=== PATIENT | male | born 1930 | race Caucasian/White ===

== ENCOUNTER 2019-02-27 00:41 | Emergency (ER) | payer OTHER, MEDICARE ==
[2019-02-27 01:35] LABS: Absolute Lymphocytes (CBC) 1.1 K/uL (0.7-4.9); Basophils % 0.7 % (0-1.3); Eosinophils % 5.7 % (0-4.4); Hematocrit 42.9 % (39.6-49.0); Lymphocytes % 19.6 % (15.3-44.8); MPV 9.1 fL (7.6-11.3); Monocytes % 9.2 % (3.3-12.3); RBC Red Blood Cell Count 4.49 M/uL (4.33-5.43)
[2019-02-27 01:54] LABS: Albumin 3.8 g/dL (3.4-5.0); Bilirubin Direct 0.1 mg/dL (0-0.2); Bilirubin Total 0.4 mg/dL (0.2-1.0); Potassium 3.8 mmol/L (3.5-5.1); Protein, Total 7.1 g/dL (6.4-8.2)
[2019-02-27] MEDS ORDERED: NA CHLORIDE 0.9% 500 ML ONE (03:36)
[2019-02-27 03:51] LABS: Urine Blood TRACE (NEG); Urine Glucose TRACE (NEG); Urine Protein NEGATIVE (NEG)
[2019-02-27 04:02] LABS: Urine Bacteria <20 /HPF (NONE SEEN); Urine Culture Reflex Order NOT NEEDED; Urine RBC <5 /HPF (NONE SEEN)
--- NOTE | 2019-02-27 04:14 | EDPHYS ---
Physician Documentation [facility] Name: Michael Ponce Age: 88 yrs Sex: Male : 1930 Arrival Date: 02/27/2019 Time: 00:43 Bed 6 Private MD: Skinny Wen V ED Physician Franklin Harris HPI: 02/27 02:44 This 88 yrs old Male presents to ER via Wheelchair with complaints of rn Abdominal Pain. 02:44 The patient presents with abdominal pain. The patient presents with abdominal pain rn suprapubic. Onset: The symptoms/episode began/occurred 1 hour(s) ago. The symptoms do not radiate. Associated signs and symptoms: none. Pertinent negatives: nausea and vomiting, anorexia, blood in stools, chest pain, constipation, diarrhea, dysuria, fever, hematuria, nausea, palpitations, shortness of breath, testicular pain, vomiting, vomiting blood. The symptoms are described as sharp. Modifying factors: The symptoms are alleviated by nothing, the symptoms are aggravated by nothing. Severity of pain: At its worst the pain was mild in the emergency department the pain has resolved. The patient has not experienced similar symptoms in the past. The patient has not recently seen a physician. Historical: - Allergies: 01:11 No Known Allergies; bb - Home Meds: 01:11 levothyroxine 50 mcg tab [Active]; glimepiride 4 mg Oral tab [Active]; rosuvastatin bb oral oral [Active]; Xarelto 15 mg oral tab [Active]; finesteride [Active]; tamsulosin oral oral [Active]; memantine oral oral [Active]; donepezil oral oral [Active]; - PMHx: 01:11 vascular dementia; BPH; CAD; bb - PSHx: 01:11 Heart stents; prostate surgery; bb - Immunization history:: Adult Immunizations up to date. - Social history:: Smoking status: Patient/guardian denies using tobacco. - Ebola Screening: : No symptoms or risks identified at this time. - Family history:: not pertinent. - Hospitalizations: : No recent hospitalization is reported. ROS: 02:44 Constitutional: Negative for fever, chills, and weight loss, Eyes: Negative for injury, rn pain, redness, and discharge, Neck: Negative for injury, pain, and swelling, Cardiovascular: Negative for chest pain, palpitations, and edema, Respiratory: Negative for shortness of breath, cough, wheezing, and pleuritic chest pain, Abdomen/GI: Negative for nausea, vomiting, diarrhea, and constipation, Back: Negative for injury and pain, : Negative for injury, bleeding, discharge, and swelling, MS/Extremity: Negative for injury and deformity, Skin: Negative for injury, rash, and discoloration, Neuro: Negative for headache, weakness, numbness, tingling, and seizure. Exam: 02:44 Constitutional: Thin male no acute distress Head/Face: Normocephalic, atraumatic. interventional radiology rn: Regular rate and rhythm. No pulse deficits. Respiratory: No increased work of breathing, no retractions or nasal flaring. Abdomen/GI: soft, non-tender Skin: Warm, dry with normal turgor. Normal color with no rashes, no lesions, and no evidence of cellulitis. MS/ Extremity: Pulses equal, no cyanosis. Neurovascular intact. Full, normal range of motion. Equal circumference. Neuro: Awake and alert, GCS 15, oriented to person, place, and situation. Cranial nerves II-XII grossly intact. Motor strength 5/5 in all extremities. Sensory grossly intact. Vital Signs: 01:11 BP 150 / 93; Pulse 72; Resp 16 S; Temp 98.3(O); Pulse Ox 97% on R/A; Weight 63.5 kg bb (R); Height 5 ft. 7 in. (170.18 cm) (R); Pain 0/10; 02:00 BP 145 / 77; Pulse 50; Resp 16 S; Pulse Ox 98% on R/A; bb 03:00 BP 143 / 82; Pulse 52; Resp 16 S; Temp 97.6(O); Pulse Ox 98% on R/A; bb 04:41 BP 162 / 90; Pulse 50; Resp 18 S; Pulse Ox 98% on R/A; cc3 01:11 Body Mass Index 21.93 (63.50 kg, 170.18 cm) bb MDM: 00:49 Patient medically screened. rn 04:11 Differential diagnosis: bowel obstruction, urinary tract infection, constipation, rn unspecified abd pain, gas. Data reviewed: vital signs, nurses notes, lab test result(s), radiologic studies, CT scan, and as a result, I will discharge patient. Counseling: I had a detailed discussion with the patient and/or guardian regarding: the historical points, exam findings, and any diagnostic results supporting the discharge/admit diagnosis, lab results, radiology results, the need for outpatient follow up, to return to the emergency department if symptoms worsen or persist or if there are any questions or concerns that arise at home. Response to treatment: the patient's condition has returned to base line, the patient is now symptom free, and as a result, I will discharge patient. Special discussion: I discussed with the patient/guardian in detail that at this point there is no indication for admission to the hospital. It is understood, however, that if the symptoms persist or worsen the patient needs to return immediately for re-evaluation. Based on the history and exam findings, there is no indication for further emergent testing or inpatient evaluation. I discussed with the patient/guardian the need to see the electrician control equipment for further evaluation of the symptoms. I discussed with the patient/guardian the need to see the primary care provider for further evaluation of the symptoms. ED course: CT without acute findings other than possible fecal impaction. Patient positive is having normal bowel movements, well-formed, and confirms this. Given having formed stool and no obstruction on ct, family and I agree to try enema and suppository but not more aggressive intervention such as manual disimpaction, which family declines. They will call Dr. Wen today and return precautions given and understood. . 02/27 01:05 Order name: Basic Metabolic Panel; Complete Time: :02/27 01:05 Order name: CBC with Diff; Complete Time: :02/27 01:05 Order name: Creatinine for Radiology; Complete Time: :02/27 01:05 Order name: Hepatic Function; Complete Time: :02/27 01:05 Order name: Lipase; Complete Time: :02/27 01:05 Order name: Urine Microscopic Only 02/27 01:05 Order name: IV Saline Lock; Complete Time: 02/27 01:05 Order name: Labs collected and sent; Complete Time: :02/27 01:05 Order name: CT Abd/Pelvis - IV Contrast Only 02/27 01:05 Order name: Urine Dipstick-Ancillary (obtain specimen); Complete Time: 03:39 rn 02/27 03:43 Order name: Urine Dipstick--Ancillary (enter results); Complete Time: 03:58 ar5 Administered Medications: 03:24 Drug: NS 0.9% 500 ml Route: IV; Rate: bolus; Site: left forearm; bb 03:56 Follow up: Response: No adverse reaction; IV Status: Completed infusion; IV Intake: cc3 500ml 04:25 Drug: Glycerin (Adult) Suppository 1 supp Route: FL; cc3 04:44 Follow up: Response: No adverse reaction cc3 04:25 Drug: Fleet Enema 133 ml Route: FL; cc3 04:43 Follow up: Response: No adverse reaction cc3 Disposition: 02/27/19 04:13 Discharged to Home. Impression: Lower abdominal pain, unspecified, Fecal impaction. - Condition is Stable. - Discharge Instructions: Abdominal Pain, Adult, Fecal Impaction. - Medication Reconciliation Form, Thank You Letter, Antibiotic Education, Prescription Opioid Use form. - Follow up: Skinny Wen MD; When: As needed; Reason: Recheck today's complaints, Re-evaluation by your physician. - Problem is new. - Symptoms have improved. Signatures: Dispatcher [employer] EDMS Ana M Salas RN RN bb Nieto, Roman, MD MD rn Cordel, Charlene cc3 Corrections: (The following items were deleted from the chart) 02:46 02:44 Constitutional: Negative for fever, chills, and weight loss, Eyes: Negative for rn injury, pain, redness, and discharge, Neck: Negative for injury, pain, and swelling, Cardiovascular: Negative for chest pain, palpitations, and edema, Respiratory: Negative for shortness of breath, cough, wheezing, and pleuritic chest pain, Abdomen/GI: Negative for nausea, vomiting, diarrhea, and constipation, MS/Extremity: Negative for injury and deformity, Skin: Negative for injury, rash, and discoloration, Neuro: Negative for headache, weakness, numbness, tingling, and seizure, rn 04:58 04:13 02/27/2019 04:13 Discharged to Home. Impression: Lower abdominal pain, cc3 unspecified; Fecal impaction. Condition is Stable. Forms are Medication Reconciliation Form, Thank You Letter, Antibiotic Education, Prescription Opioid Use. Follow up: Skinny Wen; When: As needed; Reason: Recheck today's complaints, Re-evaluation by your physician. Problem is new. Symptoms have improved. rn
--- NOTE | 2019-02-27 04:14 | ER ---
Nurse's Notes [facility] Name: Michael Ponce Age: 88 yrs Sex: Male : 1930 Arrival Date: 02/27/2019 Time: 00:43 Bed 6 Private MD: Skinny Wen V Diagnosis: Lower abdominal pain, unspecified;Fecal impaction Presentation: 02/27 01:05 Presenting complaint: Patient states: he was having abdominal pain since last night was bb restless and unable to sleep family states he took tylenol PM at approx 2300 last night but still unable to sleep. Pt denies vomiting, diarrhea but was nauseous, states he is not feeling any pain right now. Transition of care: patient was not received from another setting of care. Onset of symptoms was February 26, 2019. Risk Assessment: Do you want to hurt yourself or someone else? Patient reports no desire to harm self or others. Initial Sepsis Screen: Does the patient meet any 2 criteria? No. Patient's initial sepsis screen is negative. Does the patient have a suspected source of infection? No. Patient's initial sepsis screen is negative. Care prior to arrival: None. 01:05 Method Of Arrival: Wheelchair bb 01:05 Acuity: WOL[place] 3 bb Historical: - Allergies: 01:11 No Known Allergies; bb - Home Meds: 01:11 levothyroxine 50 mcg tab [Active]; glimepiride 4 mg Oral tab [Active]; rosuvastatin bb oral oral [Active]; Xarelto 15 mg oral tab [Active]; finesteride [Active]; tamsulosin oral oral [Active]; memantine oral oral [Active]; donepezil oral oral [Active]; - PMHx: 01:11 vascular dementia; BPH; CAD; bb - PSHx: 01:11 Heart stents; prostate surgery; bb - Immunization history:: Adult Immunizations up to date. - Social history:: Smoking status: Patient/guardian denies using tobacco. - Ebola Screening: : No symptoms or risks identified at this time. - Family history:: not pertinent. - Hospitalizations: : No recent hospitalization is reported. Screenin:10 Abuse screen: Denies threats or abuse. Nutritional screening: No deficits noted. jd3 Tuberculosis screening: No symptoms or risk factors identified. Fall Risk Ambulatory Aid- Crutches/Cane/Walker (15 pts). Gait- Weak (10 pts.). Mental Status- Overestimates/Forgets Limitations (15 pts.). Total Church Fall Scale indicates High Risk Score (45 or more points). Fall prevention measures have been instituted. Side Rails Up X 2 Placed Close to Nursing Station Frequent Obs/Assessments Occuring Family Present and informed to notify staff if the need to leave the bedside. Assessment: 01:07 General: Appears in no apparent distress. uncomfortable, Behavior is calm, cooperative, jd3 appropriate for age. Pain: Complains of pain in suprapubic area Pain does not radiate. Quality of pain is described as aching, Is continuous. Neuro: Level of Consciousness is awake, alert, obeys commands, confused, Oriented to person, place. Cardiovascular: Denies chest pain, Heart tones present Capillary refill < 3 seconds Patient's skin is warm and dry. Rhythm is irregular. Respiratory: Airway is patent Respiratory effort is even, unlabored, Respiratory pattern is regular, symmetrical, Breath sounds are clear bilaterally. Denies cough, shortness of breath. GI: Abdomen is flat, non-distended, Bowel sounds present X 4 quads. Abd is soft and non tender X 4 quads. Reports lower abdominal pain, Patient currently denies constipation, diarrhea, nausea, vomiting. : Denies burning with urination, inability to void, urinary frequency. EENT: No signs and/or symptoms were reported regarding the EENT system. Derm: Skin is intact, is thin, Skin is dry, Skin is normal, Skin temperature is warm. Musculoskeletal: Circulation, motion, and sensation intact. Range of motion: intact in all extremities. 02:00 Reassessment: Patient is alert, oriented x 3, equal unlabored respirations, skin bb warm/dry/pink. pt resting quietly, no complaints, awaiting CT scan, family at bedside. 03:00 Reassessment: Patient is alert, oriented x 3, equal unlabored respirations, skin bb warm/dry/pink. pt resting quietly, no complaints, IV site intact, with no erythema or edema noted, awaiting CT results, family at bedside. 03:45 Reassessment: Patient appears in no apparent distress at this time. Patient and/or cc3 family updated on plan of care and expected duration. Pain level reassessed. Patient is alert, oriented x 3, equal unlabored respirations, skin warm/dry/pink. Dr. Harris at bedside explaining to the family his plan of care. 04:35 Reassessment: Patient appears in no apparent distress at this time. Patient and/or cc3 family updated on plan of care and expected duration. Pain level reassessed. Patient is alert, oriented x 3, equal unlabored respirations, skin warm/dry/pink. After giving the suppository and enema the patient went to the bathroom assisted by wheelchair by vein access technician Wood. 04:55 Reassessment: Patient appears in no apparent distress at this time. Patient and/or cc3 family updated on plan of care and expected duration. Pain level reassessed. Patient is alert, oriented x 3, equal unlabored respirations, skin warm/dry/pink. Patient successfully passed stool. Dr. Harris discharged the patient home, no prescription given. IV cannula removed and patient left ER vitally stable by wheelchair escorted by me and his family. No valuables left bedside. Patient denies pain at this time. Patient states feeling better. Patient states symptoms have improved. Vital Signs: 01:11 BP 150 / 93; Pulse 72; Resp 16 S; Temp 98.3(O); Pulse Ox 97% on R/A; Weight 63.5 kg bb (R); Height 5 ft. 7 in. (170.18 cm) (R); Pain 0/10; 02:00 BP 145 / 77; Pulse 50; Resp 16 S; Pulse Ox 98% on R/A; bb 03:00 BP 143 / 82; Pulse 52; Resp 16 S; Temp 97.6(O); Pulse Ox 98% on R/A; bb 04:41 BP 162 / 90; Pulse 50; Resp 18 S; Pulse Ox 98% on R/A; cc3 01:11 Body Mass Index 21.93 (63.50 kg, 170.18 cm) bb ED Course: 00:43 Patient arrived in ED. es 00:43 Skinny Wen MD is Private Physician. es 00:49 Franklin Harris MD is Attending Physician. rn 01:05 Ana M Salas RN is Primary Nurse. bb 01:08 Triage completed. bb 01:11 Patient has correct armband on for positive identification. Placed in gown. Bed in low jd3 position. Call light in reach. Side rails up X2. Adult w/ patient. 01:11 Arm band placed on Patient placed in an exam room, on a stretcher, on desk monitor, bb on pulse oximetry. Family accompanied patient. 01:27 Initial lab(s) drawn, by me, sent to lab. Missed attempt(s): 22 gauge in right forearm. bb Bleeding controlled, band aid applied, catheter tip intact. Inserted saline lock: 22 gauge in right forearm, using aseptic technique. Blood collected. 02:50 CT Abd/Pelvis - IV Contrast Only In Process Unspecified. EDMS 02:50 CT completed. Patient tolerated procedure well. Patient moved to CT via stretcher. Patient moved back from CT. 03:35 Report given to Jacki Ponce. bb 04:13 Skinny Wen MD is Referral Physician. rn 04:55 No provider procedures requiring assistance completed. IV discontinued, intact, cc3 bleeding controlled, No redness/swelling at site. Pressure dressing applied. Administered Medications: 03:24 Drug: NS 0.9% 500 ml Route: IV; Rate: bolus; Site: left forearm; bb 03:56 Follow up: Response: No adverse reaction; IV Status: Completed infusion; IV Intake: cc3 500ml 04:25 Drug: Glycerin (Adult) Suppository 1 supp Route: MO; cc3 04:44 Follow up: Response: No adverse reaction cc3 04:25 Drug: Fleet Enema 133 ml Route: MO; cc3 04:43 Follow up: Response: No adverse reaction cc3 Intake: 03:56 IV: 500ml; Total: 500ml. cc3 Outcome: 04:13 Discharge ordered by . rn 04:55 Discharged to home via wheelchair, with family. cc3 04:55 Condition: stable 04:55 Discharge instructions given to patient, family, Instructed on discharge instructions, follow up and referral plans. Demonstrated understanding of instructions, follow-up care. 04:58 Patient left the ED. cc3 Signatures: Dispatcher [employer] EDPA Marily Guillory Ervin eh Ballard, Brenda, RN RN bb Franklin Harris MD MD rn Davies, Jonathon, RN RN jd3 Cordel, Charlene cc3
[2019-02-27] MEDS ORDERED: FLEET ENEMA ADULT PR ONE (04:22)
[2019-02-27] MEDS ORDERED: GLYCERIN ADULT SUPP PR ONE (04:34)
--- NOTE | 2019-02-27 10:15 | RAD REPORT ---
EXAM DESCRIPTION: CT - Abdomen Pelvis W Contrast - 02/27/2019 7:12 am CLINICAL HISTORY: 88-year-old male with suprapubic pain and pain across lower abdomen since last nig ht; patient denies nausea, vomiting, diarrhea and constipation TECHNIQUE: Axial CT imaging of the abdomen and pelvis was performed following the administration of intravenous contrast.. Sagittal and coronal reconstructed images were then performed. The CT stud y is performed according to ALARA (as low as reasonably achievable) or ALARA/IMAGE GENTLY, with autom atic adjustment of mA and/or kV according to patient size. Performed on: 02/27/2019 at 2:38 AM. COMPARISON: None FINDINGS: Lung bases: The lung bases are clear. There is minimal bibasilar atelectasis and/or fibros is. Liver: The liver is normal in size and configuration. There is an incidental subcentimeter cyst in th e medial segment of the left hepatic lobe. Liver attenuation is within normal limits. Spleen: The spleen is normal is size, configuration and attenuation. Gallbladder and bile duct: The gallbladder is well distended and unremarkable. There is no biliary ductal dilatation. Pancreas: The pancreas is grossly normal in size and configuration. Adrenal Glands: The adrenal glands are normal in size and configuration. Kidneys: The kidneys are normal in size and configuration. There is no evidence of hydronephrosis. Th ere is no evidence of nephrolithiasis. No definite solid or cystic renal mass lesions are identified. There is some motion artifact on the images involving the mid abdomen. Stomach: The stomach is grossly normal. There is no definite hiatal hernia. Bowel: The bowel gas pattern is non specific and non obstructive. There is a large fecal impaction in the rectum measuring approximately 7.9 x 7.2 cm in cross-sectional diameter. Appendix: The appendix is normal. Free air: There is no evidence of free air. Free fluid: There is no evidence of free fluid. Vasculature: The aorta is normal in caliber and contour. The inferior vena cava is grossly unremarkab le.There are atherosclerotic calcifications along the abdominal aorta and iliac arteries as well as t he aortic major branch vessels. Lymphadenopathy: No pathologic lymphadenopathy is identified. Bladder: The bladder is well distended. There is a large diverticulum arising from the anterior super ior bladder just to the right of midline. There is an additional smaller bladder diverticulum arising from the right lateral wall of the bladder. Reproductive: The prostate gland is surgically absent. Bones: There is an age indeterminate moderate compression fracture of L3. There is advanced degenerat jodi disc disease throughout the lumbar spine and there is grade 1 anterolisthesis of L4 relative to L 5. There are also degenerative changes of the lower thoracic spine and pelvis. There is moderate barbi l stenosis at the L4-L5 level and probable bilateral neural foraminal stenosis. There is a nonspecifi c small focal area of sclerosis in the right iliac bone. This may represent a benign bone island. Soft tissues: No focal soft tissue abnormalities are identified. IMPRESSION: 1. There is some motion artifact on the images involving the mid abdomen resulting in sl ight degradation of image quality. 2. Fecal impaction in the rectum. The rectum measures approximately 7.9 x 7.2 cm in cross-sectional d iameter. 3. Degenerative changes of the skeletal and vascular structures. There is an age indeterminate modera te compression fracture of L3. There is grade 1 anterolisthesis of L4 relative to L5 and there is mod erate canal stenosis at this level. 4. Bladder diverticula. 5. Remote prostatectomy. Electronically signed by: Nhung Quintero DO 02/27/2019 3:14 AM CDT Due to temporary technical issues with the PACS/Fluency reporting system, reports are being signed by the in house radiologist as a courtesy to ensure prompt reporting. The interpreting radiologist is f ully responsible for the content of the report.
== END 2019-02-27 04:58 | disposition home or self-care (01) ==
LOC: ER 00:41
DX: K56.41 Fecal impaction (principal); N40.0 Benign prostatic hyperplasia without lower urinary tract symptoms; I25.10 Atherosclerotic heart disease of native coronary artery without angina pectoris
CPT/HCPCS: 85025; 80048; 36415; 80076; 83690; 74177; 96360; 99284; Q9967; 81003; 81015

== ENCOUNTER 2019-05-12 09:37 | Inpatient (IN) | payer OTHER, MEDICARE ==
[2019-05-12 10:15] LABS: Absolute Lymphocytes (CBC) 0.6 K/uL (0.7-4.9); Basophils % 0.2 % (0-1.3); Hematocrit 44.6 % (39.6-49.0); Lymphocytes % 5.4 % (15.3-44.8); MPV 9.1 fL (7.6-11.3); RBC Red Blood Cell Count 4.69 M/uL (4.33-5.43)
--- NOTE | 2019-05-12 10:17 | RAD REPORT ---
EXAM DESCRIPTION: CT - Head Brain Wo Cont - 05/12/2019 9:56 am CLINICAL HISTORY: Fall, head trauma COMPARISON: None. TECHNIQUE: Axial 5 mm thick images of the head were obtained without IV contrast. All CT scans are performed using dose optimization technique as appropriate and may include automated exposure control or mA/KV adjustment according to patient size. FINDINGS: No intracranial hemorrhage, mass, edema or shift of mid-line structures. No acute cortical based infarction. No cortical edema or sulcal effacement. Advanced atrophy and chronic ischemic rich ges. Ventricles are in proportion to volume loss dense arterial tree calcifications present. Asymmetr y is created to Mastoid air cells and visualized portions of the paranasal sinuses are clear. No acute bony findings. IMPRESSION: Advanced atrophy and chronic ischemic changes are present. No hemorrhage or acute intracranial finding.
[2019-05-12 10:19] LABS: Potassium 4.1 mmol/L (3.5-5.1); Protime INR 2.04
--- NOTE | 2019-05-12 10:28 | RAD REPORT ---
EXAM DESCRIPTION: CT - Abdomen Pelvis Wo Contrast - 05/12/2019 9:58 am CLINICAL HISTORY: fall, low back, pelvic pain, unable to get up COMPARISON: Abdomen Pelvis W Contrast dated 02/27/2019 TECHNIQUE: Axial [address] imaging of the abdomen and pelvis was performed without IV contrast. No IV contrast was given because of allergy, abnormal renal function, patient refusal or physician re quest. Oral contrast was given. All CT scans are performed using dose optimization technique as appropriate and may include automated exposure control or mA/KV adjustment according to patient size. FINDINGS: Lung base atelectasis changes are present. No pneumothorax or pleural fluid collection. He art size is upper normal. No pericardial effusion. The liver, spleen and pancreas show no suspicious findings on non-contrast imaging. Gallbladder and b iliary tree are also without suspicious finding. No hydronephrosis or suspicious renal mass. No significant adrenal finding. Isodense renal masses an d pyelonephritis cannot be excluded in the absence of IV contrast. The urinary bladder is without sig nificant finding. The no acute injury to the bowel. There is a large amount of stool distending the rectum. No free ai r, free fluid or inflammatory stranding. No hernia, mass or bulky lymphadenopathy. No measurable alexis lefty as she soft tissue finding. Disc and bone degenerative changes are present. The 50% compression fracture at L3 has not change fro m February 27. No pathologic bone process. No fracture of the sacral ala seen. Patient has fractures of t he left superior pubic ramus at the pubic symphysis and the left ischium. No other pelvic fracture co nfirmed. No fracture or dislocation of either proximal femur. IMPRESSION: Fractures of the left ischium and left superior pubic ramus both presumed to be acute an d related to the recent fall history. No other pelvic fractures seen. No fracture or acute finding of either proximal femur. L3 50% compression fracture has not clearly changed from the February 27 comparison. No injury to the solid abdominal viscera or bowel. No free fluid or other significant finding. Full assessment is limited is the absence of IV contrast.
--- NOTE | 2019-05-12 10:32 | RAD REPORT ---
EXAM DESCRIPTION: RAD - Femur Right - 05/12/2019 10:20 am CLINICAL HISTORY: Fall, femur pain COMPARISON: None. FINDINGS: No fracture, dislocation or periosteal reaction noted. No AVN or focal femoral head abnorm ality. There are moderate degenerative changes at the right hip joint. Mild degenerative change in th e partially imaged SI joint. No femur fracture identified. Degenerative changes are present at the kn ee joint. No joint effusion. Dense arterial tree calcifications present. No significant soft tissue f inding identifiable. No air or foreign body in the soft tissues. IMPRESSION: Hip joint and knee joint degenerative changes are present. No fracture or acute right fe mur finding.
--- NOTE | 2019-05-12 10:33 | RAD REPORT ---
EXAM DESCRIPTION: RAD - Femur Left - 05/12/2019 10:20 am CLINICAL HISTORY: Fall, left leg pain COMPARISON: None. FINDINGS: No left femur fracture is identified. Left hip joint degenerative changes are present rela tively mild for age. Knee joint degenerative changes are present without effusion seen. Dense arteria l tree calcifications are present. No AVN or focal femoral head abnormality. No significant soft tis gilbert finding. Partially imaged left hemipelvis shows a left ischium fracture and a left superior pubic ramus fractu re at the pubic symphysis. IMPRESSION: Fractures of the left superior pubic ramus and left ischium. No fracture or acute left femur finding.
--- NOTE | 2019-05-12 10:44 | RAD REPORT ---
EXAM DESCRIPTION: RAD - Chest Single View - 05/12/2019 10:18 am CLINICAL HISTORY: Fall, chest and back pain COMPARISON: October 2018, February 2018 TECHNIQUE: AP portable chest image was obtained . FINDINGS: No acute lung parenchymal process. Posterior gutter assessment is limited. No failure or v olume overload suspected. Heart size is upper normal but not clearly different from comparison. No ac [place] vascular engorgement. No measurable pleural effusion and no pneumothorax. No acute bone findings confirmed. Osteopenia is present. There is minimal height loss superior endplate T7 that does not anibal ear to be acute. Thoracic spine assessment is limited on a portable examination. No acute aortic find ings suspected. IMPRESSION: No pulmonary contusion, pneumothorax or other traumatic injury of the chest identifiable . Partial compression T7 is not acute. Thoracic spine assessment is limited on a portable exam.
[2019-05-12 11:21] LABS: Blood Morphology Comment NOT SEEN (NOT SEEN); Platelet Estimate ADEQ; Urine White Blood Cell Casts OK
[2019-05-12] MEDS ORDERED: ONDANSETRON 4 MG/2 ML VIAL ONE (11:35)
[2019-05-12] MEDS ORDERED: MORPHINE 2 MG/ML SYR ONE (11:35)
--- NOTE | 2019-05-12 12:11 | EDPHYS ---
Physician Documentation [facility] Name: Michael Ponce Age: 88 yrs Sex: Male : 1930 Arrival Date: 05/12/2019 Time: 09:39 Bed 5 Private MD: ED Physician Franklin Harris HPI: 05/12 09:44 This 88 yrs old Male presents to ER via Unassigned with complaints of Fall rn Injury. 09:44 Details of fall: The patient fell from an upright position, while walking. Onset: The rn symptoms/episode began/occurred yesterday. Associated injuries: The patient sustained pelvis and both legs. Severity of symptoms: At their worst the symptoms were moderate, in the emergency department the symptoms are unchanged. It is unknown whether or not the patient has had similar symptoms in the past. Per EMS, found him on ground this AM, not sure how long he had been down, patient with vascular dementia and doesn't recall details before or after, was found next to bed. Patient reports chronic back pain but new pelvic and leg pains.. Historical: - Allergies: 09:55 No Known Allergies; iw - Home Meds: 09:46 donepezil 10 mg oral tab once daily [Active]; finasteride 1 mg oral tab 1 tab once iw daily [Active]; glimepiride 4 mg Oral tab [Active]; levothyroxine 50 mcg tab once daily [Active]; memantine oral once daily [Active]; tamsulosin 0.4 mg oral cp24 1 cap once daily [Active]; Xarelto 15 mg oral tab daily [Active]; Hydroxyzine Oral [Active]; rosuvastatin 10 mg oral tab 1 tab once daily [Active]; - PMHx: 09:46 BPH; CAD; VASCULAR DEMENTIA; iw - Immunization history:: Adult Immunizations unknown. - Social history:: Smoking status: Patient/guardian denies using tobacco. - Immunization history: Last tetanus immunization: unknown. - Family history:: not pertinent. - Ebola Screening: : No symptoms or risks identified at this time. - Hospitalizations: : No recent hospitalization is reported. ROS: 09:44 Constitutional: Negative for fever, chills, and weight loss, Eyes: Negative for injury, rn pain, redness, and discharge, Neck: Negative for injury, pain, and swelling, Cardiovascular: Negative for chest pain, palpitations, and edema, Respiratory: Negative for shortness of breath, cough, wheezing, and pleuritic chest pain, Abdomen/GI: Negative for abdominal pain, nausea, vomiting, diarrhea, and constipation, Back: + low back pain MS/Extremity: + pelvic and both thighs hurt Skin: Negative for injury, rash, and discoloration, Neuro: Negative for headache, numbness, tingling, and seizure. Exam: 09:44 Constitutional: This is a well developed, well nourished patient who is awake, alert, rn and in no acute distress. Head/Face: Normocephalic, atraumatic. Eyes: Periorbital areas with no swelling, redness, or edema. ENT: NO oral trauma, + dry MM Neck: Trachea midline, No midline tenderness Chest/axilla: Normal chest wall appearance and motion. Nontender with no deformity. No lesions are appreciated. Cardiovascular: Regular rate and rhythm. No pulse deficits. Respiratory: Lungs have equal breath sounds bilaterally, clear to auscultation. No increased work of breathing, no retractions or nasal flaring. Abdomen/GI: soft, non-tender Back: + lower perilumbar tenderness, no ecchymosis, no spinal tenderness MS/ Extremity: Pulses equal, no cyanosis. Sensation intact. Painful flexion of both hips with proximal femoral tenderness. Neuro: Awake and alert, GCS 15, oriented to person, and situation. Cranial nerves II-XII grossly intact. Motor strength 4/5 in all extremities. Sensory grossly intact. Vital Signs: 09:47 BP 174 / 94; Pulse 70; Resp 18; Temp 97.1(TE); Pulse Ox 97% on R/A; ph 10:50 BP 163 / 91; Pulse 66; Resp 20 S; Pulse Ox 94% on R/A; Pain 0/10; iw 11:46 BP 144 / 83; Pulse 65; Resp 18; Pulse Ox 95% on R/A; ph 12:35 BP 151 / 84; Pulse 68; Resp 18; Pulse Ox 95% on R/A; ph 14:26 BP 123 / 76; Pulse 71; Resp 18; Temp 97.5; Pulse Ox 95% on 2 lpm NC; ph [place] Coma Score: 09:47 Eye Response: spontaneous(4). Verbal Response: confused(4). Motor Response: obeys ph commands(6). Total: 14. 11:46 Eye Response: spontaneous(4). Verbal Response: oriented(5). Motor Response: obeys ph commands(6). Total: 15. 12:35 Eye Response: spontaneous(4). Verbal Response: oriented(5). Motor Response: obeys ph commands(6). Total: 15. 14:26 Eye Response: spontaneous(4). Verbal Response: oriented(5). Motor Response: obeys ph commands(6). Total: 15. Trauma Score (Adult): 09:47 Eye Response: spontaneous(1); Verbal Response: confused(1); Motor Response: obeys ph commands(2); Systolic BP: > 89 mm Hg(4); Respiratory Rate: 10 to 29 per min(4); Latricia Score: 14; Trauma Score: 12 10:50 Eye Response: spontaneous(1); Verbal Response: oriented(1); Motor Response: obeys iw commands(2); Systolic BP: > 89 mm Hg(4); Respiratory Rate: 10 to 29 per min(4); Latricia Score: 15; Trauma Score: 12 11:46 Eye Response: spontaneous(1); Verbal Response: oriented(1); Motor Response: obeys ph commands(2); Systolic BP: > 89 mm Hg(4); Respiratory Rate: 10 to 29 per min(4); Latricia Score: 15; Trauma Score: 12 12:35 Eye Response: spontaneous(1); Verbal Response: oriented(1); Motor Response: obeys ph commands(2); Systolic BP: > 89 mm Hg(4); Respiratory Rate: 10 to 29 per min(4); [place] Score: 15; Trauma Score: 12 14:26 Eye Response: spontaneous(1); Verbal Response: oriented(1); Motor Response: obeys ph commands(2); Systolic BP: > 89 mm Hg(4); Respiratory Rate: 10 to 29 per min(4); Latricia Score: 15; Trauma Score: 12 MDM: 09:41 Patient medically screened. rn 12:08 Differential diagnosis: contusion, fracture, sprain, strain. Data reviewed: vital rn signs, nurses notes, lab test result(s), radiologic studies, CT scan, plain films, and as a result, I will admit patient. Counseling: I had a detailed discussion with the patient and/or guardian regarding: the historical points, exam findings, and any diagnostic results supporting the discharge/admit diagnosis, lab results, radiology results, the need for further work-up and treatment in the hospital. Response to treatment: the patient's symptoms have mildly improved after treatment, and as a result, I will admit patient. Admission orders: after a detailed discussion of the patient's condition and case, the admit orders are written by me. ED course: Pt elderly, in a lot of pain, unable to help him up and assist even to bathroom here, requests that he be admitted for pain and assistance in placement. Consulted with Dr. Wen who will admit patient for such. Fractures are non-operative. . 05/12 09:44 Order name: CBC with Diff; Complete Time: 12:06 rn 05/12 09:44 Order name: Basic Metabolic Panel; Complete Time: 11: rn 05/12 09:44 Order name: Urine Microscopic Only rn 05/12 09:44 Order name: Protime (+inr); Complete Time: 11: rn 05/12 09:44 Order name: Ptt, Activated; Complete Time: 11: rn 05/12 11:22 Order name: CBC Smear Scan; Complete Time: 12:06 EDMS 05/12 09:44 Order name: XRAY Femur LEFT; Complete Time: 11: rn 05/12 09:44 Order name: XRAY Femur RIGHT; Complete Time: 11: rn 05/12 09:44 Order name: CT Head Brain wo Cont; Complete Time: 11: rn 05/12 09:44 Order name: XRAY Chest (1 view); Complete Time: 11: rn 05/12 09:44 Order name: CT Abd/Pelvis - Without Contrast; Complete Time: 11: rn 05/12 13:09 Order name: Diet Mech. Soft (ground); Complete Time: 13:10 iw 05/12 09:44 Order name: IV Start; Complete Time: 09:54 rn Administered Medications: 11:43 Drug: Zofran 4 mg Route: IVP; Site: right antecubital; ph 12:34 Follow up: Response: No adverse reaction ph 11:45 Drug: morphine 2 mg Route: IVP; Site: right antecubital; ph 12:34 Follow up: Response: No adverse reaction; Pain is decreased; RASS: Alert and Calm (0) ph Disposition: 05/12/19 12:10 Hospitalization ordered by Skinny Wen for Inpatient Admission. Preliminary diagnosis are Acute, closed, non-displaced left superior pubic ramus fracture, Unspecified fracture of left ischium. - Bed requested for Telemetry/MedSurg (Inpatient). - Status is Inpatient Admission. ph - Condition is Stable. - Problem is new. - Symptoms have improved. UTI on Admission? No Signatures: Dispatcher [employer] EDMS Ariana Lora Irene, RN RN iw Franklin Harris MD MD rn Hall, Patricia, RN RN ph Corrections: (The following items were deleted from the chart) 09:47 09:44 Constitutional: Negative for fever, chills, and weight loss, Eyes: Negative for rn injury, pain, redness, and discharge, Neck: Negative for injury, pain, and swelling, Cardiovascular: Negative for chest pain, palpitations, and edema, Respiratory: Negative for shortness of breath, cough, wheezing, and pleuritic chest pain, Abdomen/GI: Negative for abdominal pain, nausea, vomiting, diarrhea, and constipation, Back: + low back pain MS/Extremity: + pelvic and both thighs hurt Skin: Negative for injury, rash, and discoloration, Neuro: Negative for headache, weakness, numbness, tingling, and seizure, rn 14:21 12:10 Hospitalization Ordered by Skinny Wen MD for Inpatient Admission. Preliminary bd diagnosis is Acute, closed, non-displaced left superior pubic ramus fracture; Unspecified fracture of left ischium. Bed requested for Telemetry/MedSurg (Inpatient). Status is Inpatient Admission. Condition is Stable. Problem is new. Symptoms have improved. UTI on Admission? No. rn 14:59 14:21 05/12/2019 12:10 Hospitalization Ordered by Skinny Wen MD for Inpatient ph Admission. Preliminary diagnosis is Acute, closed, non-displaced left superior pubic ramus fracture; Unspecified fracture of left ischium. Bed requested for Telemetry/MedSurg (Inpatient). Status is Inpatient Admission. Condition is Stable. Problem is new. Symptoms have improved. UTI on Admission? No. bd
--- NOTE | 2019-05-12 12:11 | ER ---
Nurse's Notes [facility] Name: Michael Ponce Age: 88 yrs Sex: Male : 1930 Arrival Date: 05/12/2019 Time: 09:39 Bed 5 Private MD: Diagnosis: Acute, closed, non-displaced left superior pubic ramus fracture;Unspecified fracture of left ischium Presentation: 05/12 09:44 Presenting complaint: EMS states: Pt from home, fell sometime during the night, ph reports finding pt on ground, unknown down time, pt hx of dementia and does not recall events, c/o back pain and fede leg pain, VSS, skin cold to touch. Care prior to arrival: Placed on backboard. Mechanism of Injury: Fall from standing position. Trauma event details: Injury occurred in the [facility], Injury occurred: at home. Injury occurred: May 12, 2019. 09:44 Acuity: [place] 3 09:44 Method Of Arrival: EMS: [facility] 09:51 Transition of care: patient was not received from another setting of care. Onset of ph symptoms was May 12, 2019. Risk Assessment: Do you want to hurt yourself or someone else? Patient reports no desire to harm self or others. Initial Sepsis Screen: Does the patient meet any 2 criteria? No. Patient's initial sepsis screen is negative. Does the patient have a suspected source of infection? No. Patient's initial sepsis screen is negative. Trauma Activation: Alert Physician: ED Physician; Name: Steven; Notified At: ; Arrived At: Physician: General Surgeon; Name: ; Notified At: ; Arrived At: Physician: Radiology; Name: ; Notified At: ; Arrived At: Physician: Respiratory; Name: ; Notified At: ; Arrived At: Physician: Lab; Name: ; Notified At: ; Arrived At: Historical: - Allergies: 09:55 No Known Allergies; iw - Home Meds: 09:46 donepezil 10 mg oral tab once daily [Active]; finasteride 1 mg oral tab 1 tab once iw daily [Active]; glimepiride 4 mg Oral tab [Active]; levothyroxine 50 mcg tab once daily [Active]; memantine oral once daily [Active]; tamsulosin 0.4 mg oral cp24 1 cap once daily [Active]; Xarelto 15 mg oral tab daily [Active]; Hydroxyzine Oral [Active]; rosuvastatin 10 mg oral tab 1 tab once daily [Active]; - PMHx: 09:46 BPH; CAD; VASCULAR DEMENTIA; iw - Immunization history:: Adult Immunizations unknown. - Social history:: Smoking status: Patient/guardian denies using tobacco. - Immunization history: Last tetanus immunization: unknown. - Family history:: not pertinent. - Ebola Screening: : No symptoms or risks identified at this time. - Hospitalizations: : No recent hospitalization is reported. Screenin:50 Abuse screen: Denies threats or abuse. Denies injuries from another. Nutritional ph screening: No deficits noted. Tuberculosis screening: No symptoms or risk factors identified. Fall Risk Fall in past 12 months (25 points). Secondary diagnosis (15 points) dementia, IV access (20 points). Ambulatory Aid- None/Bed Rest/Nurse Assist (0 pts). Gait- Weak (10 pts.). Mental Status- Overestimates/Forgets Limitations (15 pts.). Total [place] Fall Scale indicates High Risk Score (45 or more points). Fall prevention measures have been instituted. Side Rails Up X 2 Placed Close to Nursing Station Frequent Obs/Assessments Occuring As available patient and family educated on Fall Prevention Program and Strategies. Primary Survey: 09:49 NO uncontrolled hemorrhage observed. A: The patient is alert. Airway: patent, No ph supplemental oxygen in use on arrival. Oral cavity: clear, Trachea midline. Breathing/Chest: Respiratory pattern: regular, Respiratory effort: spontaneous, unlabored, Chest inspection: symmetrical rise and fall of the chest. Circulation: Pulses: palpable right radial artery, right dorsalis pedis artery, left radial artery and left dorsalis pedis artery. Skin color: pink, Skin temperature: dry, cool. Disability Alert. Exposure/Environment: All clothing and personal items were removed. Forensic evidence collection is not deemed to be indicated at this time. Items placed in patient belonging bag. There is no evidence of uncontrolled external bleeding. No obvious injuries are noted at this time. 14:41 Reassessment Airway Airway Patent Breathing/Chest Respiratory pattern Regular ph Respiratory effort Spontaneous Unlabored Circulation Color [place] Temperature Warm Dry. Secondary Survey: 09:50 HEENT: No deficits noted. Gastrointestinal: No deficits noted. Musculoskeletal: ph Circulation, motion, and sensation intact. Swelling absent Reports pain in back and bilateral upper legs. Assessment: 09:45 Reassessment: Dr Harris at bedside to assess pt, backboard removed. ph 09:48 General: Appears in no apparent distress. comfortable, slender, well groomed, Behavior ph is calm, cooperative, appropriate for age. Pain: Complains of pain in back and bilateral thigh. Neuro: Level of Consciousness is awake, alert, obeys commands, Oriented to person, place, situation, Moves all extremities. Speech is normal, Pupils are PERRLA. Cardiovascular: Capillary refill < 3 seconds in bilateral fingers Patient's skin is warm and dry. Respiratory: Airway is patent Trachea midline Respiratory effort is even, unlabored. Derm: Skin is intact, is fragile, is thin, Skin is pink, warm \T\ dry. Musculoskeletal: Circulation, motion, and sensation intact. Swelling absent. 09:54 Reassessment: Pt taken to radiology via stretcher. ph 10:47 Reassessment: Patient appears in no apparent distress at this time. Patient and/or iw family updated on plan of care and expected duration. Pain level reassessed. Patient denies pain at this time. Patient states feeling better. Patient states symptoms have improved. 11:45 Reassessment: Patient appears in no apparent distress at this time. Patient and/or ph family updated on plan of care and expected duration. Pain level reassessed. Pt awake and alert, pain medication administered per ERP order, at bedside assisting pt in using urinal. 12:28 Reassessment: Patient appears in no apparent distress at this time. Patient and/or ph family updated on plan of care and expected duration. Pain level reassessed. Patient is alert, oriented x 3, equal unlabored respirations, skin warm/dry/pink. Pt unable to use urinal, requesting to be taken to restroom, assisted pt into wheelchair, pt tolerated well w/ minimal lifting required, pt then assisted back to room via wheelchair and now resting quietly w/ at bedside, awaiting room assignment. 12:53 Reassessment: Patient appears in no apparent distress at this time. Patient and/or ph family updated on plan of care and expected duration. Pain level reassessed. Dr Wen at bedside. 14:40 Reassessment: Patient appears in no apparent distress at this time. Patient and/or ph family updated on plan of care and expected duration. Pain level reassessed. Report called to second floor. Vital Signs: 09:47 BP 174 / 94; Pulse 70; Resp 18; Temp 97.1(TE); Pulse Ox 97% on R/A; ph 10:50 BP 163 / 91; Pulse 66; Resp 20 S; Pulse Ox 94% on R/A; Pain 0/10; iw 11:46 BP 144 / 83; Pulse 65; Resp 18; Pulse Ox 95% on R/A; ph 12:35 BP 151 / 84; Pulse 68; Resp 18; Pulse Ox 95% on R/A; ph 14:26 BP 123 / 76; Pulse 71; Resp 18; Temp 97.5; Pulse Ox 95% on 2 lpm NC; ph [place] Coma Score: 09:47 Eye Response: spontaneous(4). Verbal Response: confused(4). Motor Response: obeys ph commands(6). Total: 14. 11:46 Eye Response: spontaneous(4). Verbal Response: oriented(5). Motor Response: obeys ph commands(6). Total: 15. 12:35 Eye Response: spontaneous(4). Verbal Response: oriented(5). Motor Response: obeys ph commands(6). Total: 15. 14:26 Eye Response: spontaneous(4). Verbal Response: oriented(5). Motor Response: obeys ph commands(6). Total: 15. Trauma Score (Adult): 09:47 Eye Response: spontaneous(1); Verbal Response: confused(1); Motor Response: obeys ph commands(2); Systolic BP: > 89 mm Hg(4); Respiratory Rate: 10 to 29 per min(4); [place] Score: 14; Trauma Score: 12 10:50 Eye Response: spontaneous(1); Verbal Response: oriented(1); Motor Response: obeys iw commands(2); Systolic BP: > 89 mm Hg(4); Respiratory Rate: 10 to 29 per min(4); [place] Score: 15; Trauma Score: 12 11:46 Eye Response: spontaneous(1); Verbal Response: oriented(1); Motor Response: obeys ph commands(2); Systolic BP: > 89 mm Hg(4); Respiratory Rate: 10 to 29 per min(4); [place] Score: 15; Trauma Score: 12 12:35 Eye Response: spontaneous(1); Verbal Response: oriented(1); Motor Response: obeys ph commands(2); Systolic BP: > 89 mm Hg(4); Respiratory Rate: 10 to 29 per min(4); [place] Score: 15; Trauma Score: 12 14:26 Eye Response: spontaneous(1); Verbal Response: oriented(1); Motor Response: obeys ph commands(2); Systolic BP: > 89 mm Hg(4); Respiratory Rate: 10 to 29 per min(4); [place] Score: 15; Trauma Score: 12 ED Course: 09:39 Patient arrived in ED. ss 09:41 Franklin Harris MD is Attending Physician. rn 09:44 Moira Griffith RN is Primary Nurse. ph 09:47 Triage completed. ph 09:51 Arm band placed on Patient placed in an exam room, on a stretcher. ph 09:52 Patient has correct armband on for positive identification. Placed in gown. Bed in low ph position. Call light in reach. Side rails up X2. Pulse ox on. NIBP on. Door closed. Noise minimized. Warm blanket given. 09:53 Patient maintains SpO2 saturation greater than 95% on room air. Thermoregulation: warm ph blanket given to patient. 09:55 Maintain EMS IV. Dressing intact. Good blood return noted. Site clean \T\ dry. Gauge \T\ iw site: 20 RAC. 09:56 CT Head Brain wo Cont In Process Unspecified. EDMS 09:58 CT Abd/Pelvis - Without Contrast In Process Unspecified. EDMS 10:19 XRAY Femur LEFT In Process Unspecified. EDMS 10:19 XRAY Femur RIGHT In Process Unspecified. EDMS 10:19 XRAY Chest (1 view) In Process Unspecified. EDMS 12:09 Skinny Wen MD is Hospitalizing Provider. rn 12:28 No provider procedures requiring assistance completed. Patient admitted, IV remains in ph place. Administered Medications: 11:43 Drug: Zofran 4 mg Route: IVP; Site: right antecubital; ph 12:34 Follow up: Response: No adverse reaction ph 11:45 Drug: morphine 2 mg Route: IVP; Site: right antecubital; ph 12:34 Follow up: Response: No adverse reaction; Pain is decreased; RASS: Alert and Calm (0) ph Intake: 09:47 PO: 0ml; Total: 0ml. ph Output: 09:47 Urine: 0ml; Total: 0ml. ph Outcome: 12:10 Decision to Hospitalize by Provider. rn 14:42 Admitted to Med/surg accompanied by tech, family with patient, via stretcher, room 210, ph with oxygen, with chart. 14:42 Condition: stable 14:42 Patient's length of stay was not longer than 2 hours. 14:59 Patient left the ED. ph Signatures: Dispatcher [employer] Sharmin Lyman RN RN iw Franklin Harris MD MD rn Smirch, Shelby, RN RN ss Hall, Patricia, RN RN ph Corrections: (The following items were deleted from the chart) 12:34 12:34 Response: No adverse reaction; Pain is decreased ph ph
[2019-05-12] MEDS ORDERED: ONDANSETRON 4 MG/2 ML VIAL IV PRN (15:25)
[2019-05-12 17:40] LABS: Urine Appearance CLEAR; Urine Bilirubin NEGATIVE (NEG); Urine Blood TRACE (NEG); Urine Color YELLOW; Urine Glucose NEGATIVE (NEG); Urine Protein NEGATIVE (NEG); Urine Specific Gravity 1.015 (1.005-1.030); Urine Urobilinogen 0.2 mg/dL (0.2-1.0); Urine pH 5.5 (5.0-7.0)
[2019-05-12 17:41] LABS: Urine Microscopic Reflex ORDER UMIC
--- NOTE | 2019-05-12 18:02 | P.SSS ---
Patient History Date of Service: 05/12/19 Reason for admission: FELL AT HOME, FOUND ON BED SIDE. History of Present Illness: MR. OKEEFE WHO IS FRAIL AND SEVERELY DEMENTED FALLS AT HOME AND IS NOT SURE HOW LONG HE WAS SITTING NEXT TO THE BED. FAMILY BROUGHT HIM HERE AND IS HERE FOR PAIN CONTROL AND DISPOSITION. HE HAS PELVIC FRACTURES AT TWO LOCATIONS. Allergies No Known Allergies Allergy (Unverified 05/12/19 15:25) Home Medications: Azithromycin 250 mg PO DAILY 05/12/19 Donepezil HCl 10 mg PO DAILY 05/12/19 Finasteride [Proscar*] 5 mg PO DAILY 05/12/19 Glimepiride 4 mg PO BID 05/12/19 Levothyroxine Sodium 50 mcg PO DAILY 05/12/19 Memantine HCl 10 mg PO BID 05/12/19 Rivaroxaban [Xarelto] 15 mg PO DAILY 05/12/19 Rosuvastatin Calcium 10 mg PO DAILY 05/12/19 - Past Medical/Surgical History Has patient received pneumonia vaccine in the past: No Diabetic: Yes -: hypothyroid -: dm -: htn -: bph -: cad -: vascular dementia -: prostate surgery - Social History Smoking Status: Never smoker Caffeine use: Yes Place of Residence: Home Review of Systems 10-point ROS is otherwise unremarkable General: Weakness, Malaise Musculoskeletal: As per HPI Physical Examination - Vital Signs Temperature: 97.9 F Blood Pressure: 138/65 Pulse: 66 Respirations: 16 Pulse Ox (%): 94 - Physical Exam General: Alert, Oriented x1, Cachectic, Moderate distress, Confused HEENT: Atraumatic, PERRLA, Mucous membr. moist/pink, EOMI, Sclerae nonicteric Neck: Supple, 2+ carotid pulse no bruit, No LAD, Without JVD or thyroid abnormality Respiratory: Clear to auscultation bilaterally, Normal air movement Cardiovascular: Regular rate/rhythm, Normal S1 S2 Gastrointestinal: Normal bowel sounds, No tenderness Musculoskeletal: No tenderness Integumentary: No rashes Neurological: Normal gait, Normal speech, Normal strength at 5/5 x4 extr, Normal tone, Normal affect Lymphatics: No axilla or inguinal lymphadenopathy - Studies Laboratory Data (last 24 hrs) 05/12/19 09:50: PT 23.4 H, INR 2.04, APTT 39.2 H 05/12/19 09:50: Sodium 143, Potassium 4.1, BUN 27 H, Creatinine 1.25, Glucose 155 H 05/12/19 09:50: WBC 11.9 H, Hgb 15.1, Hct 44.6, Plt Count 250 - Diagnosis (Problem(s)) (1) Pelvic fracture Current Visit: Yes Status: Acute Plan: THIS FRAIL GM WILL NOT RECOVER. AT THIS POINT HOSPICE AT HOME IS A GOOD IDEA HE HAS SEVERE DEMETNIA AND HE HAS BEEN GETTING WORSE WITH WEIGHT LOSS, CACHEXIA FOR LAST FEW MONTHS. Qualifiers: Encounter type: initial encounter Pelvic bone location: multiple parts Fracture type: closed Fracture alignment: without disruption of pelvic ring Qualified Code(s): S32.82XA - Multiple fractures of pelvis without disruption of pelvic ring, initial encounter for closed fracture (2) Alzheimer disease Current Visit: Yes Status: Acute Plan: SEVERE. ST ILL ON MEDS. Qualifiers: Alzheimer's disease onset: late-onset (3) Diabetes Current Visit: Yes Status: Acute - Disposition Disposition: ROUTINE DISCHARGE
[2019-05-12 20:41] LABS: Urine Bacteria <20 /HPF (NONE SEEN); Urine RBC <5 /HPF (NONE SEEN)
[2019-05-12 20:42] LABS: Urine Amorphous Sediment TRACE /HPF (NONE SEEN); Urine Culture Reflex Order NOT NEEDED; Urine Mucus 1+ /HPF (NONE SEEN)
[2019-05-12] MEDS: DONEPEZIL HCL 5 MG TAB PO SCH (21:27)
[2019-05-12] MEDS: MEMANTINE HCL 10 MG TABLET PO SCH (21:27)
[2019-05-12] MEDS: ROSUVASTATIN 10 MG TAB PO SCH (21:27)
[2019-05-13] MEDS: LEVOTHYROXINE SOD 0.05 MG TABLET PO SCH (05:27)
[2019-05-13] MEDS: HYDROCODONE/APAP 5/325 MG TAB PO PRN ×4 (05:27→21:57)
[2019-05-13] MEDS: FINASTERIDE 5 MG TAB PO SCH (10:15)
[2019-05-13] MEDS: MEMANTINE HCL 10 MG TABLET PO SCH ×3 (10:16→21:56)
[2019-05-13] MEDS: RIVAROXABAN 15 MG TABLET PO SCH (10:16)
[2019-05-13] MEDS: GLIMEPIRIDE 2 MG TABLET PO SCH ×2 (10:16→16:26)
[2019-05-13] MEDS: NACHLORIDE 0.45% 1,000 ML IV SCH (15:04)
--- NOTE | 2019-05-13 17:31 | P.PN ---
Subjective Date of Service: 05/13/19 Chief Complaint: FELL AT HOME, FOUND ON BED SIDE. Subjective: Improving HE IS GETTING ON BEDSIDE COMMODE. HE IS NOT ABLE TO SWALLOW FOOD. I HAVE HEARD OF THIS FROM HER BEFORE. HE HAS GRADUALLY WORSENED OVER FEW MONTHS. HE IS VERY FRAIL AND FALL RISK. Review of Systems 10-point ROS is otherwise unremarkable General: Weakness, Malaise Physical Examination - Vital Signs Temperature: 98.2 F Blood Pressure: 117/55 Pulse: 66 Respirations: 20 Pulse Ox (%): 93 - Physical Exam General: Alert, Cachectic, Mild distress, Moderate distress HEENT: Atraumatic, PERRLA, EOMI Neck: Supple, JVD not distended Respiratory: Clear to auscultation bilaterally, Normal air movement Cardiovascular: Regular rate/rhythm, Normal S1 S2 Gastrointestinal: Normal bowel sounds, No tenderness Musculoskeletal: No tenderness Integumentary: No rashes Neurological: Normal speech, Dementia Lymphatics: No axilla or inguinal lymphadenopathy - Studies Medications List Reviewed: Yes Assessment And Plan - Current Problems (Diagnosis) (1) Pelvic fracture Current Visit: Yes Status: Acute Plan: THIS FRAIL GM WILL NOT RECOVER. AT THIS POINT HOSPICE AT HOME IS A GOOD IDEA HE HAS SEVERE DEMETNIA AND HE HAS BEEN GETTING WORSE WITH WEIGHT LOSS, CACHEXIA FOR LAST FEW MONTHS. 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 HE HAS WORSENED SLOWLY. IS AWARE OF PROGRESSIVE WEAKNESS, FALLS, WEIGHT LOSS AND SO I ADVISED HOSPICE IF HE IS NOT ACCPTED AT REHAB. HE WILL NEED 24 HOUR CARE AND IF SHE DOES NOT GET HELP, SHE WILL GET SICK. Qualifiers: Encounter type: initial encounter Pelvic bone location: multiple parts Fracture type: closed Fracture alignment: without disruption of pelvic ring Qualified Code(s): S32.82XA - Multiple fractures of pelvis without disruption of pelvic ring, initial encounter for closed fracture (2) Alzheimer disease Current Visit: Yes Status: Acute Plan: SEVERE. ST ILL ON MEDS. Qualifiers: Alzheimer's disease onset: late-onset (3) Diabetes Current Visit: Yes Status: Acute
[2019-05-13] MEDS: ROSUVASTATIN 10 MG TAB PO SCH ×2 (21:00→21:56)
[2019-05-13] MEDS: DONEPEZIL HCL 5 MG TAB PO SCH ×2 (21:00→21:56)
[2019-05-14] MEDS: HYDROMORPHONE HCL 1 MG/ML INJ IV PRN ×2 (00:06→12:09)
[2019-05-14] MEDS: NACHLORIDE 0.45% 1,000 ML IV SCH (04:47)
[2019-05-14] MEDS: LEVOTHYROXINE SOD 0.05 MG TABLET PO SCH (05:15)
[2019-05-14 06:07] LABS: Albumin 2.9 g/dL (3.4-5.0); Prealbumin 11.5 mg/dL (20-40)
[2019-05-14] MEDS: RIVAROXABAN 15 MG TABLET PO SCH (09:00)
[2019-05-14] MEDS: FINASTERIDE 5 MG TAB PO SCH (09:00)
[2019-05-14] MEDS: MEMANTINE HCL 10 MG TABLET PO SCH ×2 (09:00→21:00)
[2019-05-14] MEDS: D5 0.45 NS 1,000 ML IV SCH (11:00)
--- NOTE | 2019-05-14 11:18 | RAD REPORT ---
EXAM DESCRIPTION: RAD - Barium Swallow Modified - 05/14/2019 11:10 am CLINICAL HISTORY: DIFF SWALLOWING COMPARISON: <Comparisons> TECHNIQUE: The patient was given liquid, semi-solid and solid forms of barium. Lateral view fluorosc opic imaging was performed in conjunction with speech pathology service. FINDINGS: laryngeal pentration ; NOT CLEARED aspiration: cough ineffective with all ( thin, nectar,honey , puree) pharyngeal residue: vallecular and pyriform severe with nectar, honey and puree other : severe swallow delay ( 10 plus seconds), absent swallow , esophageal wall thickening (anterio r), osteophytes severely limiting pharyngeal space, prominent cricopharyngeus Total fluoroscopy time: 3 minutes 11 seconds
--- NOTE | 2019-05-14 17:11 | P.PN ---
Subjective Date of Service: 05/14/19 Chief Complaint: FELL AT HOME, FOUND ON BED SIDE. Subjective: No new changes HE IS GETTING ON BEDSIDE COMMODE. HE IS NOT ABLE TO SWALLOW FOOD. I HAVE HEARD OF THIS FROM HER BEFORE. HE HAS GRADUALLY WORSENED OVER FEW MONTHS. HE IS VERY FRAIL AND FALL RISK. MR. OKEEFE IS NOT DOING WELL. HE IS NOT ABLE TO SWALLOW HIS OWN SALIVA ALSO. WE DID MBS AND CONSULTED DR. LEIVA FOR G TUBE. WANTED TO SEE REPORT OF MBS BEFORE SHE WILL SIGN CONSENT. Review of Systems 10-point ROS is otherwise unremarkable General: Weakness, Malaise Respiratory: Cough Gastrointestinal: As per HPI Physical Examination - Vital Signs Temperature: 99 F Blood Pressure: 111/75 Pulse: 80 Respirations: 16 Pulse Ox (%): 94 - Physical Exam General: Alert, Cachectic, Moderate distress HEENT: Atraumatic, PERRLA, EOMI Neck: Supple, JVD not distended Respiratory: Clear to auscultation bilaterally, Normal air movement Cardiovascular: Regular rate/rhythm, Normal S1 S2 Gastrointestinal: Normal bowel sounds, No tenderness Musculoskeletal: No tenderness Integumentary: No rashes Neurological: Normal speech, Normal tone, Normal affect Lymphatics: No axilla or inguinal lymphadenopathy - Studies Medications List Reviewed: Yes Assessment And Plan - Current Problems (Diagnosis) (1) Pelvic fracture Current Visit: Yes Status: Acute Plan: THIS FRAIL GM WILL NOT RECOVER. AT THIS POINT HOSPICE AT HOME IS A GOOD IDEA HE HAS SEVERE DEMETNIA AND HE HAS BEEN GETTING WORSE WITH WEIGHT LOSS, CACHEXIA FOR LAST FEW MONTHS. IDEALLY HE IS NOT A CANDIDATE WITH [facility] FOR [facility] IMPROVEMENT. HE HAS WORSENED SLOWLY. IS AWARE OF PROGRESSIVE WEAKNESS, FALLS, WEIGHT LOSS AND SO I ADVISED HOSPICE IF HE IS NOT ACCPTED AT REHAB. HE WILL NEED 24 HOUR CARE AND IF SHE DOES NOT GET HELP, SHE WILL GET SICK. Qualifiers: Encounter type: initial encounter Pelvic bone location: multiple parts Fracture type: closed Fracture alignment: without disruption of pelvic ring Qualified Code(s): S32.82XA - Multiple fractures of pelvis without disruption of pelvic ring, initial encounter for closed fracture (2) Alzheimer disease Current Visit: Yes Status: Acute Plan: SEVERE. ST ILL ON MEDS. 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 IT SHOWS ENLARGED CRICOPHARYNGEAL AREA AND THICKENED ESOPHAGUS. I TALKED TO IN DETAIL AND EXPLAINED THAT G TUBE IS THE ONLY OPTION WE CAN'T LET HIM STARVE AND THEN WE WILL PUT HIM ON HOSPICE AFTER DISCHARGE HE IS TERMINAL FROM ALZ. DISEASE.
[2019-05-14] MEDS: ROSUVASTATIN 10 MG TAB PO SCH (21:00)
[2019-05-14] MEDS: DONEPEZIL HCL 5 MG TAB PO SCH (21:00)
[2019-05-15] MEDS: D5 0.45 NS 1,000 ML IV SCH ×2 (00:16→12:40)
[2019-05-15] MEDS: HYDROMORPHONE HCL 1 MG/ML INJ IV PRN ×4 (00:36→23:00)
[2019-05-15 06:08] VITALS: BMI 21.8
[2019-05-15] MEDS: LEVOTHYROXINE SOD 0.05 MG TABLET PO SCH (06:30)
[2019-05-15] MEDS: FINASTERIDE 5 MG TAB PO SCH (08:08)
[2019-05-15] MEDS: MEMANTINE HCL 10 MG TABLET PO SCH ×2 (08:08→21:44)
[2019-05-15] MEDS ORDERED: LIDOCAINE 1% MPF 5 ML VIAL ONE (11:58)
[2019-05-15] MEDS ORDERED: PROPOFOL 200 MG/20 ML VIAL IV ONE (11:58)
[2019-05-15] MEDS ORDERED: NA CHLORIDE 0.9% 1,000 ML ONE (12:00)
[2019-05-15] MEDS ORDERED: ETOMIDATE 20 MG/10 ML VIAL IV ONE (12:22)
[2019-05-15] MEDS ORDERED: NS 0.9% VIAL 0 ML ONE (12:22)
[2019-05-15] MEDS ORDERED: Phenylephrine HCl 10 MG/ML 1 ML VIAL ONE (12:22)
[2019-05-15] MEDS ORDERED: BOTU TOX TYPE A 100 UNIT/VIAL ID ONE (12:41)
--- NOTE | 2019-05-15 12:42 | P.PN ---
Subjective Date of Service: 05/15/19 Chief Complaint: FELL AT HOME, FOUND ON BED SIDE. Subjective: Worsening HE IS GETTING ON BEDSIDE COMMODE. HE IS NOT ABLE TO SWALLOW FOOD. I HAVE HEARD OF THIS FROM HER BEFORE. HE HAS GRADUALLY WORSENED OVER FEW MONTHS. HE IS VERY FRAIL AND FALL RISK. MR. OKEEFE IS NOT DOING WELL. HE IS NOT ABLE TO SWALLOW HIS OWN SALIVA ALSO. WE DID MBS AND CONSULTED DR. LEIVA FOR G TUBE. WANTED TO SEE REPORT OF MBS BEFORE SHE WILL SIGN CONSENT. IS GETTING WORSE. HE IS NOT ABLE TO SWALLOW HIS OWN SALIVA. HE IS IN DISTRESS AT REST. HAS TO SIT UP. Review of Systems General: Weakness, Malaise Respiratory: Cough Physical Examination - Vital Signs Temperature: 98.4 F Blood Pressure: 108/62 Pulse: 69 Respirations: 18 Pulse Ox (%): 90 - Physical Exam General: Oriented x1, Cachectic, Moderate distress HEENT: Atraumatic, PERRLA, EOMI Neck: Supple, JVD not distended Respiratory: Diminished Cardiovascular: Regular rate/rhythm, Normal S1 S2 Gastrointestinal: Normal bowel sounds, No tenderness Musculoskeletal: No tenderness Integumentary: No rashes Neurological: Normal speech, Normal tone, Normal affect Lymphatics: No axilla or inguinal lymphadenopathy - Studies Medications List Reviewed: Yes Assessment And Plan - Current Problems (Diagnosis) (1) Pelvic fracture Current Visit: Yes Status: Acute Plan: THIS FRAIL GM WILL NOT RECOVER. AT THIS POINT HOSPICE AT HOME IS A GOOD IDEA HE HAS SEVERE DEMETNIA AND HE HAS BEEN GETTING WORSE WITH WEIGHT LOSS, CACHEXIA FOR LAST FEW MONTHS. 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 HE HAS WORSENED SLOWLY. IS AWARE OF PROGRESSIVE WEAKNESS, FALLS, WEIGHT LOSS AND SO I ADVISED HOSPICE IF HE IS NOT ACCPTED AT REHAB. HE WILL NEED 24 HOUR CARE AND IF SHE DOES NOT GET HELP, SHE WILL GET SICK. Qualifiers: Encounter type: initial encounter Pelvic bone location: multiple parts Fracture type: closed Fracture alignment: without disruption of pelvic ring Qualified Code(s): S32.82XA - Multiple fractures of pelvis without disruption of pelvic ring, initial encounter for closed fracture (2) Alzheimer disease Current Visit: Yes Status: Acute Plan: SEVERE. ST ILL ON MEDS. 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 IT SHOWS ENLARGED CRICOPHARYNGEAL AREA AND THICKENED ESOPHAGUS. I TALKED TO IN DETAIL AND EXPLAINED THAT G TUBE IS THE ONLY OPTION WE CAN'T LET HIM STARVE AND THEN WE WILL PUT HIM ON HOSPICE AFTER DISCHARGE HE IS TERMINAL FROM ALZ. DISEASE. SALIVA ACCUMULATES AND I ORDERED NASOTRACHEAL DEEP SUCTION EVERY TWO HOURS. WILL START ON SCOP PATCH.
[2019-05-15] MEDS ORDERED: SCOPOLAMINE HYDROBROMIDE PATCH TD SCH (13:00)
[2019-05-15] MEDS ORDERED: CEFAZOLIN/SWI 2gm 2 GM/20 ML SYR IVP ONE (13:45)
[2019-05-15] MEDS ORDERED: GLUCERNA 1.5 CAL 1,000 ML BOT FT SCH (16:30)
[2019-05-15] MEDS: ROSUVASTATIN 10 MG TAB PO SCH (21:00)
[2019-05-15] MEDS: DONEPEZIL HCL 5 MG TAB PO SCH (21:44)
[2019-05-16] MEDS: D5 0.45 NS 1,000 ML IV SCH ×2 (02:00→05:50)
[2019-05-16] MEDS: HYDROMORPHONE HCL 1 MG/ML INJ IV PRN (04:35)
[2019-05-16] MEDS: LEVOTHYROXINE SOD 0.05 MG TABLET PO SCH (05:48)
[2019-05-16] MEDS: MEMANTINE HCL 10 MG TABLET PO SCH (09:00)
[2019-05-16] MEDS: FINASTERIDE 5 MG TAB PO SCH (09:00)
[2019-05-16 10:21] VITALS: O2SAT 96
[2019-05-16 12:38] VITALS: BP 117/70; TEMP 97.6
--- NOTE | 2019-05-16 14:28 | P.DS ---
Admission Date: 05/12/19 Discharge Date: 05/16/19 Disposition: HOSPICE-HOME Discharge Condition: SERIOUS Reason for Admission: FELL AT HOME, FOUND ON BED SIDE. - Problems (1) Pelvic fracture Current Visit: Yes Status: Acute Qualifiers: Encounter type: initial encounter Pelvic bone location: multiple parts Fracture type: closed Fracture alignment: without disruption of pelvic ring Qualified Code(s): S32.82XA - Multiple fractures of pelvis without disruption of pelvic ring, initial encounter for closed fracture (2) Alzheimer disease Current Visit: Yes Status: Acute Qualifiers: Alzheimer's disease onset: late-onset (3) Diabetes Current Visit: Yes Status: Acute Qualifiers: Diabetes mellitus type: type 2 Diabetes mellitus complication status: with ophthalmic complications (4) Mechanical dysphagia Current Visit: Yes Status: Acute Brief History of Present Illness: MR. OKEEFE WHO IS FRAIL AND SEVERELY DEMENTED FALLS AT HOME AND IS NOT SURE HOW LONG HE WAS SITTING NEXT TO THE BED. FAMILY BROUGHT HIM HERE AND IS HERE FOR PAIN CONTROL AND DISPOSITION. HE HAS PELVIC FRACTURES AT TWO LOCATIONS. Hospital Course: MR. 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 WE FOUND THAT HE HAS DYSPHAGI FROM SEVERE CERVICAL OSTEOPHYTES, HE HAD G TUBE PLACED. HE IS A CANDIDATE FOR HOSPICE FOR LAST ONE MONTH OR SO BUT FAMILY, THE WANTED TO CONTINUE WITHOUT IT. NOW THAT HE HAS DECLINED SHE HAS AGREED. AFTER TWO DAYS OF EXTENSIVE QUESTIONS AND ANSWERS HE HAS DECIDED TO TAKE HIM HOME WITH HOSPICE AND MEDICAL SERVICE TECHNICIAN. WE HAVE ONE DAY DELAY AND SO PATIENT WILL BE ON INPATIENT HOSPICE AND THEN GO TOMORROW TO HOME. Vital Signs/Physical Exam: Temp Pulse Resp BP Pulse Ox 97.6 F 74 18 117/70 97 05/16/19 12:00 05/16/19 12:00 05/16/19 12:00 05/16/19 12:00 05/16/19 12:00 Laboratory Data at Discharge: WBC 11.9 K/uL (4.3-10.9) H 05/12/19 09:50 Hgb 15.1 g/dL (13.6-17.9) 05/12/19 09:50 Hct 44.6 % (39.6-49.0) 05/12/19 09:50 Plt Count 250 K/uL (152-406) 05/12/19 09:50 PT 23.4 SECONDS (9.5-12.5) H 05/12/19 09:50 INR 2.04 05/12/19 09:50 APTT 39.2 SECONDS (24.3-36.9) H 05/12/19 09:50 Sodium 143 mmol/L (136-145) 05/12/19 09:50 Potassium 4.1 mmol/L (3.5-5.1) 05/12/19 09:50 BUN 27 mg/dL (7-18) H 05/12/19 09:50 Creatinine 1.25 mg/dL (0.55-1.3) 05/12/19 09:50 Glucose 155 mg/dL (74-106) H 05/12/19 09:50 Home Medications: Donepezil HCl 10 mg PO DAILY 05/12/19 Finasteride [Proscar*] 5 mg PO DAILY 05/12/19 Levothyroxine Sodium 50 mcg PO DAILY 05/12/19 Memantine HCl 10 mg PO BID 05/12/19 Activity: Bedrest
[2019-05-16] MEDS ORDERED: GLUCERNA 1.5 CAL 1,000 ML BOT FT SCH (17:00)
== END 2019-05-16 14:43 | disposition hospice, inpatient (51) | DRG 536 ==
LOC: ER 09:37 → ERHOLD 13:59 → 2ND 14:40
PROVIDERS: ADMIT Internal Medicine; ATTEND Internal Medicine
PROC: 0DH63UZ Insertion of Feeding Device into Stomach, Percutaneous Approach (ICD-10-PCS; 2019-05-15)
PROC: 3E0G8GC Introduction of Other Therapeutic Substance into Upper GI, Via Natural or Artificial Opening Endoscopic (ICD-10-PCS; 2019-05-15)
PROC: 0DB68ZX Excision of Stomach, Via Natural or Artificial Opening Endoscopic, Diagnostic (ICD-10-PCS; principal; 2019-05-15 12:00)
DX: S32.82XA Multiple fractures of pelvis without disruption of pelvic ring, initial encounter for closed fracture (principal); E44.0 Moderate protein-calorie malnutrition; R64 Cachexia; W06.XXXA Fall from bed, initial encounter; Y92.003 Bedroom of unspecified non-institutional (private) residence as the place of occurrence of the external cause; G30.1 Alzheimer's disease with late onset; E11.9 Type 2 diabetes mellitus without complications; E03.9 Hypothyroidism, unspecified; I10 Essential (primary) hypertension; I25.10 Atherosclerotic heart disease of native coronary artery without angina pectoris; N40.0 Benign prostatic hyperplasia without lower urinary tract symptoms; K22.2 Esophageal obstruction; M62.89 Other specified disorders of muscle; K29.70 Gastritis, unspecified, without bleeding; K29.80 Duodenitis without bleeding; F01.50 Vascular dementia, unspecified severity, without behavioral disturbance, psychotic disturbance, mood disturbance, and anxiety; R13.10 Dysphagia, unspecified; Z68.21 Body mass index [BMI] 21.0-21.9, adult
CPT/HCPCS: 36415; 70450; 71045; 74176; 74230; 80048; 81003; 81015; 82040; 82962; 84134; 85025; 85610; 85730; 88305; 88312; 92611; 96374; 96375; 97110; 97112; 97116; 97161; 97530; 99285; J0585; J0690; J1170; J2270; J2370; J2405; J2704; J7030

== ENCOUNTER 2019-05-16 14:36 | Inpatient (IN) | payer OTHER, MEDICARE ==
[2019-05-16] MEDS ORDERED: LORazepam 2 MG/ML VIAL IV PRN (15:01)
[2019-05-16] MEDS ORDERED: ONDANSETRON 4 MG/2 ML VIAL IV PRN (15:04)
[2019-05-16] MEDS ORDERED: SCOPOLAMINE HYDROBROMIDE PATCH TD SCH ×2 (15:30→16:00)
[2019-05-16] MEDS: HYDROMORPHONE HCL 1 MG/ML INJ IV PRN ×2 (15:42→22:46)
--- NOTE | 2019-05-16 15:53 | P.SSS ---
Patient History Date of Service: 05/16/19 Reason for admission: END STAGE ALZ DISEASE History of Present Illness: MR. OKEEFE IS END STAGE ALZ DISEASE PATIENT WITH SEVERE CACHEXIA, SEVERE OSTEOPHYTES RELATED DYSPHAGIA, HAS FALLEN AND BROKE PELVIC BONES. HE IS MOST LIKELY NOT GOING TO RECOVER. TO GET HIM COMFORTABLE I ADVISED HOSPICE AT HOME. DC IS DELAYED BY A DAY SO WE WILL DO INPATIENT HOSPICE FOR A DAY AND PLAN FOR DC IN AM. Allergies No Known Allergies Allergy (Unverified 05/12/19 15:25) Home Medications: Donepezil HCl 10 mg PO DAILY 05/12/19 Finasteride [Proscar*] 5 mg PO DAILY 05/12/19 Levothyroxine Sodium 50 mcg PO DAILY 05/12/19 Memantine HCl 10 mg PO BID 05/12/19 - Past Medical/Surgical History Diabetic: Yes -: hypothyroid -: dm -: htn -: bph -: cad -: vascular dementia -: prostate surgery - Social History Caffeine use: Yes Review of Systems 10-point ROS is otherwise unremarkable General: Weakness, Malaise Respiratory: Cough, Shortness of Breath Musculoskeletal: Other, As per HPI Neurological: As per HPI Physical Examination - Vital Signs Respirations: 18 Pulse Ox (%): 98 - Physical Exam General: Alert, Cachectic, Moderate distress, Confused HEENT: Atraumatic, PERRLA, Mucous membr. moist/pink, EOMI, Sclerae nonicteric Neck: Supple, 2+ carotid pulse no bruit, No LAD, Without JVD or thyroid abnormality Respiratory: Diminished, Crackles/rales Cardiovascular: Regular rate/rhythm, Normal S1 S2 Gastrointestinal: Normal bowel sounds, No tenderness Musculoskeletal: No tenderness Neurological: Abnormal strength, Abnormal tone, Dementia Lymphatics: No axilla or inguinal lymphadenopathy - Diagnosis (Problem(s)) (1) Alzheimer disease Current Visit: No Status: Chronic Plan: SEVERE DEMENTIA ABOVE. DC PLAN IN AM. HAS G TUBE FOR FEEDING. [facility] IS WORKING TO GET ALL EQUIPMENTS- BED, SUCTION MACHINE, OXYGEN, G TUBE PUMP ETC. FAMILY NEEDS HELP TO MOVE FURNITURE FOR ALL THESE. STABLE WITH POOR PROGNOSIS. Qualifiers: Alzheimer's disease onset: late-onset - Disposition Disposition: ROUTINE DISCHARGE
[2019-05-16 15:55] VITALS: BMI 21.3
[2019-05-16] MEDS: GLUCERNA 1.5 CAL 1,000 ML BOT FT SCH (16:30)
[2019-05-17] MEDS: HYDROMORPHONE HCL 1 MG/ML INJ IV PRN ×3 (03:28→16:37)
[2019-05-17 09:26] VITALS: BP 122/96; TEMP 98.5
[2019-05-17] MEDS: GLUCERNA 1.5 CAL 1,000 ML BOT FT SCH ×2 (09:54→15:04)
[2019-05-17 11:03] VITALS: O2SAT 97
--- NOTE | 2019-05-17 11:30 | P.DS ---
Admission Date: 05/16/19 Discharge Date: 05/17/19 Disposition: ROUTINE DISCHARGE Reason for Admission: END STAGE ALZ DISEASE - Problems (1) Alzheimer disease Current Visit: No Status: Chronic Qualifiers: Alzheimer's disease onset: late-onset Brief History of Present Illness: MR. OKEEFE IS END STAGE ALZ DISEASE PATIENT WITH SEVERE CACHEXIA, SEVERE OSTEOPHYTES RELATED DYSPHAGIA, HAS FALLEN AND BROKE PELVIC BONES. HE IS MOST LIKELY NOT GOING TO RECOVER. TO GET HIM COMFORTABLE I ADVISED HOSPICE AT HOME. DC IS DELAYED BY A DAY SO WE WILL DO INPATIENT HOSPICE FOR A DAY AND PLAN FOR DC IN AM. Hospital Course: MR. OKEEFE IS END STAGE DEMENTIA PATIENT WITH SEVERE DYSPHAGIA NOW HAS G TUBE. HE IS COLLECTING HIS SALIVA IN THE THROAT AND HAS TO BE SUCTIONED. HIS IS HAVING HARD TIME DECIDING ON HOME OR NH FOR HIM. HE IS ON HOSPICE. THE TEAM IS WORKING VERY HARD TO TAKE CARE OF ALL HIS NEEDS AT HOME ABOVE. TODAY AFTER CARE TAKERS ARE AVAILABLE HE WILL GO HOME WITH HOSPICE. Vital Signs/Physical Exam: Temp Pulse Resp BP Pulse Ox 98.5 F 70 16 122/96 H 97 05/17/19 08:00 05/17/19 08:00 05/17/19 10:30 05/17/19 08:00 05/17/19 10:30 Home Medications: Donepezil HCl 10 mg PO DAILY 05/12/19 Finasteride [Proscar*] 5 mg PO DAILY 05/12/19 Levothyroxine Sodium 50 mcg PO DAILY 05/12/19 Memantine HCl 10 mg PO BID 05/12/19
[2019-05-18] MEDS ORDERED: SCOPOLAMINE HYDROBROMIDE PATCH TD SCH (09:00)
== END 2019-05-17 17:56 | disposition hospice, home (50) | DRG 951 ==
LOC: 2ND 14:36
PROVIDERS: ADMIT Internal Medicine; ATTEND Internal Medicine
DX: Z51.5 Encounter for palliative care (principal); R64 Cachexia; G30.9 Alzheimer's disease, unspecified; F02.80 Dementia in other diseases classified elsewhere, unspecified severity, without behavioral disturbance, psychotic disturbance, mood disturbance, and anxiety; Z68.21 Body mass index [BMI] 21.0-21.9, adult; R13.10 Dysphagia, unspecified; Z93.1 Gastrostomy status; E03.9 Hypothyroidism, unspecified; E11.9 Type 2 diabetes mellitus without complications; I25.10 Atherosclerotic heart disease of native coronary artery without angina pectoris
CPT/HCPCS: J1170